=== PATIENT | female | born 1970 | race Caucasian/White ===

== ENCOUNTER → 2017-01-04 | Outpatient (CLI) | payer MEDICARE, MEDICAID ==
[~2017-01-04] MED LIST: DEPAKOTE 250MG250 MG PO; HYDROCHLOROTHIA25 M1 PO; IBUPROFEN800 MG PO; LOSARTAN POTAS100 MG PO; PREDNISONE 20MG20 MG PO
== END ==
LOC: RAD 01-03 09:30
DX: M75.41 Impingement syndrome of right shoulder (principal)

== ENCOUNTER → 2017-02-06 | Outpatient (CLI) | payer MEDICARE, MEDICAID ==
[2017-02-06 15:26] LABS: BUN 9 mg/dL (7-18)
[2017-02-06 15:51] LABS: GFR (ESTIMATED) 107 ML/MIN (59-)
== END ==
LOC: LAB 13:57
PROVIDERS: Nurse Practitioner Psychiatric/Mental Health
DX: F31.81 Bipolar II disorder (principal)

== ENCOUNTER → 2017-03-08 | Outpatient (CLI) | payer SELFPAY ==
--- NOTE | 2017-03-08 14:27 | RADIOLOGY REPORT PS360 ---
WRIST-2 VIEWS-RT HISTORY: Follow-up fracture HEALING OF RT WRIST FX ORDERING PHYSICIAN: RAFAEL ANDERSON MD PATIENT AGE: 46 years COMPARISON: 02/28/2017 FINDINGS: Study is obtained through cast. There remains good alignment with no interval change in the transverse fracture of the distal radius at styloid process and the dorsal fracture the distal radius longitudinal in nature as well as the avulsion of the ulnar styloid. IMPRESSION: No change distal radial and ulnar fractures with good alignment with cast in place
== END ==
LOC: RAD 09:44
DX: S52.571A Other intraarticular fracture of lower end of right radius, initial encounter for closed fracture (principal)

== ENCOUNTER → 2017-03-30 | Outpatient (CLI) | payer SELFPAY ==
--- NOTE | 2017-03-30 11:27 | RADIOLOGY REPORT PS360 ---
WRIST-3 VIEWS-RT HISTORY: Follow-up fracture FX DISTAL RADIUS ORDERING PHYSICIAN: RAFAEL ANDERSON MD PATIENT AGE: 46 years COMPARISON: 03/08/2017 FINDINGS: The cast has been removed. Healing fractures noted involving the distal radius extending from central aspect of the articular surface laterally to the base of the styloid process. Fracture line is still visible but less apparent. Longitudinal fracture of the dorsal distal radius also noted with the fracture line less apparent. Avulsion of the ulnar styloid unchanged. IMPRESSION: Interval removal of the cast with healing distal radial fracture as described above
== END ==
LOC: RAD 11:02
DX: S52.571A Other intraarticular fracture of lower end of right radius, initial encounter for closed fracture (principal)